=== PATIENT | male | born 1995 | race Caucasian/White ===

== ENCOUNTER 2017-05-09 16:37 | Emergency (ER) | payer OTHER ==
[2017-05-09 18:00] LABS: APPEARANCE,URINE CLEAR; BILIRUBIN,URINE NEGATIVE (NEGATIVE); GLUCOSE, URINE NEGATIVE (NEGATIVE); KETONES,URINE NEGATIVE (NEGATIVE); LEUKOCYTE ESTERASE,URINE NEGATIVE (NEGATIVE); NITRITE,URINE NEGATIVE (NEGATIVE); PROTEIN,URINE NEGATIVE (NEGATIVE); URINE SPECIFIC GRAVITY 1.003; UROBILINOGEN,URINE NEGATIVE mg/dL (<2.0)
[2017-05-09 18:03] LABS: ABSOLUTE LYMPHOCYTES (AUTO) 0.9 10^3/uL (0.5-4.7); ABSOLUTE MONOCYTES (AUTO) 0.3 10^3/uL (0.1-1.4); ABSOLUTE NEUT (AUTO) 7.3 10^3/uL (1.7-8.2); BASOPHILS % (AUTO) 0.4 % (0-2); EOSINOPHILS % (AUTO) 0.3 % (0-6); HEMATOCRIT 43.7 % (37.9-51.0); HEMOGLOBIN 14.7 g/dL (13.5-17.0); HGB HCT DIFFERENCE 0.4; LYMPHOCYTES % (AUTO) 10.5 % (13-45); MEAN CORPUSCULAR HEMOGLOBIN 26.3 pg (27.0-33.4); MEAN CORPUSCULAR HGB CONC 33.8 g/dL (32.0-36.0); MEAN CORPUSCULAR VOLUME 78 fl (80-97); MONOCYTES % (AUTO) 3.7 % (3-13); RED BLOOD COUNT 5.59 10^6/uL (4.35-5.55); RED CELL DISTRIBUTION WIDTH 13.9 % (11.5-14.0); SEGMENTED NEUTROPHILS % (AUTO) 85.1 % (42-78); WHITE BLOOD COUNT 8.5 10^3/uL (4.0-10.5)
[2017-05-09 18:20] LABS: ALANINE AMINOTRANSFERASE 27 U/L (21-72); ALBUMIN 5.3 g/dL (3.5-5.0); ALKALINE PHOSPHATASE 130 U/L (38-126); ANION GAP 17 (5-19); ASPARTATE AMINO TRANSFERASE 19 U/L (17-59); BILIRUBIN,DIRECT 0.4 mg/dL (0.0-0.4); BILIRUBIN,TOTAL 2.3 mg/dL (0.2-1.3); BLOOD UREA NITROGEN 9 mg/dL (7-20); CALCIUM 10.5 mg/dL (8.4-10.2); CARBON DIOXIDE 24 mmol/L (22-30); CHLORIDE 102 mmol/L (98-107); CREATININE RESULT 0.87 mg/dL (0.52-1.25); GLUCOSE 97 mg/dL (75-110); LIPASE 29.7 U/L (23-300); SODIUM 142.6 mmol/L (137-145); TOTAL PROTEIN 8.4 g/dL (6.3-8.2)
[2017-05-09 18:20] LABS: URINE BARBITURATES SCREEN NEGATIVE; URINE METHADONE SCREEN NEGATIVE; URINE OPIATES LOW NEGATIVE; URINE PHENCYCLIDINE SCREEN NEGATIVE
--- NOTE | 2017-05-09 19:39 | ER Document Report ---
ED General - General Chief Complaint: Abdominal Pain Stated Complaint: NAUSEA, VOMITING Time Seen by Provider: 05/09/17 17:19 Mode of Arrival: Ambulatory Information source: Patient Notes: Patient states that he had 2 episodes today of severe bilateral upper abdominal pain with nausea and vomiting. He also had episode of his heart racing in his hands sweaty and clammy. He states he has not had similar episodes in the past. No problems with urination or bowel movements. Nothing made the pain better or worse. It was severe. He states that currently here at the hospital he feels back to normal. There is no significant radiation of the pain. The pain was constant. TRAVEL OUTSIDE OF THE [place] IN LAST 30 DAYS: No - Related Data Allergies/Adverse Reactions: No Known Allergies Allergy (Verified 05/09/17 16:49) Past Medical History - General Information source: Patient - Social History Smoking Status: Never Smoker Frequency of alcohol use: Occasional Drug Abuse: None Family History: Reviewed & Not Pertinent Patient has suicidal ideation: No Patient has homicidal ideation: No Renal/ Medical History: Denies: Hx Peritoneal Dialysis Past Surgical History: Reports: Hx Appendectomy - Immunizations Immunizations up to date: No Hx Diphtheria, Pertussis, Tetanus Vaccination: No Review of Systems - Review of Systems Constitutional: denies: Chills, Fever Cardiovascular: Palpitations, Dizziness. denies: Syncope Respiratory: denies: Cough, Short of breath Gastrointestinal: Abdominal pain, Nausea -: Yes All other systems reviewed and negative Physical Exam - Vital signs Vitals: Temp Pulse Resp BP Pulse Ox 97.5 F 70 20 152/95 H 100 05/09/17 16:49 05/09/17 16:49 05/09/17 16:49 05/09/17 16:49 05/09/17 16:49 Interpretation: Hypertensive - General General appearance: Appears well, Alert - HEENT Head: Normocephalic, Atraumatic Eyes: Normal Pupils: PERRL - Respiratory Respiratory status: No respiratory distress Chest status: Nontender Breath sounds: Normal Chest palpation: Normal - Cardiovascular Rhythm: Regular Heart sounds: Normal auscultation Murmur: No - Abdominal Inspection: Normal Distension: No distension Bowel sounds: Normal Tenderness: Nontender Organomegaly: No organomegaly - Back Back: Normal, Nontender - Extremities General upper extremity: Normal inspection, Nontender, Normal color, Normal ROM , Normal temperature General lower extremity: Normal inspection, Nontender, Normal color, Normal ROM , Normal temperature, Normal weight bearing. No: Talya's sign - Neurological Neuro grossly intact: Yes Cognition: Normal Orientation: AAOx4 Ant Coma Scale Eye Opening: Spontaneous Ant Coma Scale Verbal: Oriented [place] Coma Scale Motor: Obeys Commands [place] Coma Scale Total: 15 Speech: Normal Motor strength normal: LUE, RUE, LLE, RLE Sensory: Normal - Psychological Associated symptoms: Normal affect, Normal mood - Skin Skin Temperature: Warm Skin Moisture: Dry Skin Color: Normal Course - Vital Signs Vital signs: Temp Pulse Resp BP Pulse Ox 97.5 F 70 20 152/95 H 100 05/09/17 16:49 05/09/17 16:49 05/09/17 16:49 05/09/17 16:49 05/09/17 16:49 - Laboratory Result Diagrams: 05/09/17 17:50 05/09/17 17:50 Laboratory results interpreted by me: 05/09/17 05/09/17 17:50 17:50 RBC 5.59 H MCV 78 L MCH 26.3 L Seg Neutrophils % 85.1 H Lymphocytes % 10.5 L Calcium 10.5 H Total Bilirubin 2.3 H Alkaline Phosphatase 130 H Total Protein 8.4 H Albumin 5.3 H Discharge - Discharge Clinical Impression: Abdominal pain Condition: Stable Disposition: HOME, SELF-CARE Instructions: Abdominal Pain ([facility]), Gallbladder Disease ([facility]) Additional Instructions: Your blood pressure is elevated. Please have this rechecked within the next week by your primary care physician. If you have any further problems with pain , fever, vomiting or any concerns please follow-up with the surgeon, Dr. Fontaine, or return to the emergency department for evaluation. Referrals: ARSEN FONTAINE MD [METAL REED TUNER] - Follow up as needed LOLLY ENCARNACION MD [ACTIVE STAFF] - Follow up as needed
[2017-05-09 19:54] VITALS: BP 138/87
--- NOTE | 2017-05-10 11:45 | EKG REPORT ---
SEVERITY:- NORMAL ECG - SINUS RHYTHM : Confirmed by: Edwardo Gloria 10-May-2017 11:45:00
== END 2017-05-09 19:55 | disposition home or self-care (01) ==
LOC: ER 16:37
DX: R10.11 Right upper quadrant pain (principal); R10.12 Left upper quadrant pain; R11.2 Nausea with vomiting, unspecified; R00.2 Palpitations; R42 Dizziness and giddiness
CPT/HCPCS: 36415; 80053; 80307; 81001; 83690; 85025; 93005; 93010; 99284

== ENCOUNTER 2017-05-15 21:11 | Emergency (ER) | payer SELFPAY ==
--- NOTE | 2017-05-15 22:48 | EKG REPORT ---
SEVERITY:- ABNORMAL ECG - SINUS ARRHYTHMIA, RATE 55-74 LEFT VENTRICULAR HYPERTROPHY : Confirmed by: Luis Nixon MD 15-May-2017 22:47:14
--- NOTE | 2017-05-15 22:50 | ER Document Report ---
ED General - General Mode of Arrival: Ambulatory Information source: Patient, Parent TRAVEL OUTSIDE OF THE [place] IN LAST 30 DAYS: No - HPI Onset: This evening Similar symptoms previously: Yes Recently seen / treated by doctor: Yes - General Chief Complaint: Passed Out Prior to Arrival Stated Complaint: POSSIBLE PANIC ATTACK Time Seen by Provider: 05/15/17 21:42 - HPI Notes: Patient is a 22-year-old male presented emergency department for a possible syncopal event. Patient was playing [place] at some friend's house and started to feel very nauseous. Patient went over to the side and had episodes of dry heaving 2. Patient then started hyperventilating according to the sister who was present and then the patient briefly passed out. Patient's mother believes the patient was having a panic attack. Patient's sister gave the patient 0.5 of lorazepam prior to arrival. Patient denies any history of anxiety. Patient did not vomit only dry heaved. Patient states that he also felt lightheaded during this event. Patient denies any diarrhea, shortness of breath, and chest pain. Patient does state that he is nauseous during the exam. Patient and mother both have concerns for the patient's gallbladder. Patient was evaluated for such recently in this emergency department. Patient is not having any abdominal pain, fever or other consistent symptoms for such. Patient has no known allergies. (RUBY ORELLANA) - Related Data Allergies/Adverse Reactions: No Known Allergies Allergy (Verified 05/09/17 16:49) Past Medical History - General Information source: Patient - Social History Smoking Status: Never Smoker Cigarette use (# per day): No Chew tobacco use (# tins/day): No Smoking Education Provided: No Frequency of alcohol use: Rare Drug Abuse: None Family History: None Patient has suicidal ideation: No Patient has homicidal ideation: No Past Surgical History: Reports: Hx Appendectomy - Immunizations Immunizations up to date: No Hx Diphtheria, Pertussis, Tetanus Vaccination: No Review of Systems - Review of Systems Constitutional: No symptoms reported EENT: No symptoms reported Cardiovascular: See HPI, Syncope, Lightheaded Respiratory: See HPI, Other - Hyperventilating Gastrointestinal: See HPI, Nausea, Other - Dry heaving Genitourinary: No symptoms reported Male Genitourinary: No symptoms reported Musculoskeletal: No symptoms reported Skin: No symptoms reported Hematologic/Lymphatic: No symptoms reported Neurological/Psychological: No symptoms reported -: Yes All other systems reviewed and negative Physical Exam - Vital signs Interpretation: Normal - Vital signs Vitals: Temp Pulse Resp BP Pulse Ox 97.6 F 81 18 147/90 H 99 05/15/17 21:25 05/15/17 21:25 05/15/17 21:25 05/15/17 21:25 05/15/17 21:25 - Notes Notes: GENERAL: Alert, interacts well. No acute distress. HEAD: Normocephalic, atraumatic. EYES: Pupils equal, round, and reactive to light. Extraocular movements intact. ENT: Oral mucosa moist, tongue midline. NECK: Full range of motion. Supple. Trachea midline. LUNGS: Clear to auscultation bilaterally, no wheezes, rales, or rhonchi. No respiratory distress. HEART: Regular rate and rhythm. No murmurs, gallops, or rubs. ABDOMEN: Soft, non-tender. Non-distended. Bowel sounds present in all 4 quadrants. EXTREMITIES: Moves all 4 extremities spontaneously. No edema. No cyanosis. NEUROLOGICAL: Alert and oriented x3. Normal speech. Cranial nerves II through XII grossly intact. PSYCH: Normal affect, normal mood. SKIN: Warm, dry, normal turgor. No rashes or lesions noted. (RUBY ORELLANA) Course - Re-evaluation Re-evalutation: 05/15/17 23:00 No risk factors for pulmonary embolism, symptoms consistent with a panic attack induced by dry heaving, discussed with patient that he could have a dysfunctional gallbladder however as he has no fever, no abdominal pain and no tenderness to palpation there is no indication for imaging at this time, patient was seen recently and had normal blood work, no elevation in LFTs. On physical examination there is no jaundice. Patient is completely back to baseline at this time. EKG is nonischemic. Patient will be discharged to home , recommended to follow a low-fat diet and follow-up as an outpatient for further gallbladder testing should he continue to have nausea when he eats greasy foods. (GURU MACHUCA) - Vital Signs Vital signs: Temp Pulse Resp BP Pulse Ox 98.0 F 86 17 143/84 H 98 05/15/17 23:05 05/15/17 23:05 05/15/17 23:05 05/15/17 23:05 05/15/17 23:05 - EKG Interpretation by Me Additional EKG results interpreted by me: 05/15/17 23:03 EKG shows sinus rhythm rate 95, normal axis, normal intervals, no ST segment elevations or depressions, no T-wave inversions per my interpretation. (GURU MACHUCA) Discharge - Discharge Clinical Impression: Anxiety attack, Nausea alone Syncope Qualifiers: Syncope type: unspecified Qualified Code(s): R55 - Syncope and collapse Hypertension Qualifiers: Hypertension type: essential hypertension Qualified Code(s): I10 - Essential ( primary) hypertension Condition: Stable Disposition: HOME, SELF-CARE Additional Instructions: Please follow a low-fat diet. Avoid greasy and fried food. Fat can also be found in dairy products. If every time you eat greasy or fatty food it causes vomiting please consider following up with surgery as an outpatient for further evaluation of your gallbladder. Should you develop severe pain in your abdomen particularly in the right upper quadrant, uncontrollable vomiting or fevers please return to the emergency department. If you start having panic attacks that are not triggered by dry heaving and nausea please consider following up with a physician or a psychologist as an outpatient. Return for chest pain or difficulty breathing that is not associated with your dry heaving. Forms: Elevated Blood Pressure Referrals: CHAPIN WARNER MD [ACTIVE STAFF] - Follow up as needed Scribe Attestation: 05/16/17 00:55 I personally performed the services described in the documentation, reviewed and edited the documentation which was dictated to the scribe in my presence, and it accurately records my words and actions. (GURU MACHUCA) Scribe Documentation - Scribe Written by Kiara:: Kiara Lucas, 05/15/2017 [id number] acting as scribe for :: Amanda
[2017-05-15 23:31] VITALS: BP 143/84
== END 2017-05-15 23:05 | disposition home or self-care (01) ==
LOC: ER 21:11
DX: R55 Syncope and collapse (principal); I10 Essential (primary) hypertension; R11.0 Nausea; R06.4 Hyperventilation; Z90.49 Acquired absence of other specified parts of digestive tract
CPT/HCPCS: 93005; 93010; 99284

== ENCOUNTER 2017-10-17 02:54 | Emergency (ER) | payer SELFPAY ==
[2017-10-17] MEDS ORDERED: ASPIRIN 81 MG TABLET, CHEWABLE PO ONE (03:56)
--- NOTE | 2017-10-17 04:00 | ER Document Report ---
ED Medical Screen (RME) - General Chief Complaint: Palpitations Stated Complaint: NUMBNESS/HEART PALPITATIONS/CLAMMY FEELING Time Seen by Provider: 10/17/17 03:56 Mode of Arrival: Ambulatory Information source: Patient, Parent Notes: 21-year-old male presents to ED for complaint of heart racing and pain with shortness of breath and diaphoresis around 9:00 until 2 AM. He states he was taken a shower brush his teeth get ready for bed and all of a sudden his heart felt like it was racing. He states he laid down and his heart felt like it was pounding and he was short of breath. He states he had some numbness at that time. States he laid there thinking that it would get better and when it did not get better by about 2:00 his mother brought him to the emergency room. He states he took some ibuprofen around 630 for headache and some Tylenol. He states now his heart is feeling much better his heart does not feel like it is racing states he still been a little diaphoretic off and on. States his doctor told him in August that he had high blood pressure and it was did not need to be monitored. He states he has lost his insurance and has not been able to follow-up with the doctor. His blood pressure was elevated and RME. Heart rate is now 81 O2 sats 100% and blood pressure is 137/94 I have greeted and performed a rapid initial assessment of this patient. A comprehensive ED assessment and evaluation of the patient, analysis of test results and completion of medical decision making process will be conducted by an additional ED providers. TRAVEL OUTSIDE OF THE [place] IN LAST 30 DAYS: No - Related Data Allergies/Adverse Reactions: No Known Allergies Allergy (Verified 05/09/17 16:49) Past Medical History Renal/ Medical History: Denies: Hx Peritoneal Dialysis Past Surgical History: Reports: Hx Appendectomy - Immunizations Immunizations up to date: No Hx Diphtheria, Pertussis, Tetanus Vaccination: No Physical Exam - Vital signs Vitals: Temp Pulse Resp BP Pulse Ox 97.6 F 69 16 138/91 H 99 10/17/17 03:05 10/17/17 03:05 10/17/17 03:05 10/17/17 03:05 10/17/17 03:05 Course - Vital Signs Vital signs: Temp Pulse Resp BP Pulse Ox 97.6 F 69 16 138/91 H 99 10/17/17 03:05 10/17/17 03:05 10/17/17 03:05 10/17/17 03:05 10/17/17 03:05
[2017-10-17 04:57] LABS: APPEARANCE,URINE CLEAR; BILIRUBIN,URINE NEGATIVE (NEGATIVE); COLOR,URINE YELLOW; GLUCOSE, URINE NEGATIVE (NEGATIVE); KETONES,URINE NEGATIVE (NEGATIVE); LEUKOCYTE ESTERASE,URINE NEGATIVE (NEGATIVE); NITRITE,URINE NEGATIVE (NEGATIVE); PROTEIN,URINE NEGATIVE (NEGATIVE); URINE SPECIFIC GRAVITY 1.029; UROBILINOGEN,URINE NEGATIVE mg/dL (<2.0)
[2017-10-17 04:59] LABS: ABSOLUTE EOSINOPHILS # (AUTO) 0.1 10^3/uL (0.0-0.6); ABSOLUTE LYMPHOCYTES (AUTO) 1.2 10^3/uL (0.5-4.7); ABSOLUTE MONOCYTES (AUTO) 0.4 10^3/uL (0.1-1.4); ABSOLUTE NEUT (AUTO) 4.6 10^3/uL (1.7-8.2); BASOPHILS % (AUTO) 0.6 % (0-2); EOSINOPHILS % (AUTO) 1.1 % (0-6); HEMATOCRIT 42.5 % (37.9-51.0); HEMOGLOBIN 14.2 g/dL (13.5-17.0); LYMPHOCYTES % (AUTO) 19.5 % (13-45); MEAN CORPUSCULAR HEMOGLOBIN 26.2 pg (27.0-33.4); MEAN CORPUSCULAR HGB CONC 33.4 g/dL (32.0-36.0); MEAN CORPUSCULAR VOLUME 78 fl (80-97); MONOCYTES % (AUTO) 6.8 % (3-13); PLATELET COUNT 152 10^3/uL (150-450); RED BLOOD COUNT 5.42 10^6/uL (4.35-5.55); RED CELL DISTRIBUTION WIDTH 14.2 % (11.5-14.0); TOTAL CELLS COUNTED % (AUTO) 100 %; WHITE BLOOD COUNT 6.3 10^3/uL (4.0-10.5)
[2017-10-17 05:10] LABS: URINE AMPHETAMINES SCREEN NEGATIVE; URINE BARBITURATES SCREEN NEGATIVE; URINE BENZODIAZEPINES SCREEN NEGATIVE; URINE COCAINE SCREEN NEGATIVE; URINE MARIJUANA (THC) SCREEN NEGATIVE; URINE METHADONE SCREEN NEGATIVE; URINE PHENCYCLIDINE SCREEN NEGATIVE
[2017-10-17 05:25] LABS: ALANINE AMINOTRANSFERASE 25 U/L (21-72); ALBUMIN 4.9 g/dL (3.5-5.0); ALKALINE PHOSPHATASE 93 U/L (38-126); ANION GAP 9 (5-19); ASPARTATE AMINO TRANSFERASE 16 U/L (17-59); BILIRUBIN,DIRECT 0.3 mg/dL (0.0-0.4); BILIRUBIN,TOTAL 1.3 mg/dL (0.2-1.3); BLOOD UREA NITROGEN 12 mg/dL (7-20); CALCIUM 10.3 mg/dL (8.4-10.2); CARBON DIOXIDE 29 mmol/L (22-30); CHLORIDE 105 mmol/L (98-107); CREATINE KINASE 70 U/L (55-170); GLUCOSE 96 mg/dL (75-110); POTASSIUM 3.8 mmol/L (3.6-5.0); SODIUM 143.1 mmol/L (137-145); TOTAL PROTEIN 7.5 g/dL (6.3-8.2)
--- NOTE | 2017-10-17 06:26 | ER Document Report ---
ED General - General Chief Complaint: Palpitations Stated Complaint: NUMBNESS/HEART PALPITATIONS/CLAMMY FEELING Time Seen by Provider: 10/17/17 03:56 Mode of Arrival: Ambulatory Information source: Patient Notes: 22-year-old male presents to ED for complaint of heart racing After performing a Medical Screening Examination, I estimate there is LOW risk for RUPTURED ESOPHAGUS, PNEUMOTHORAX, PULMONARY EMBOLISM, ACUTE CORONARY SYNDROME, OR THORACIC AORTIC DISSECTION, thus I consider the discharge disposition reasonable. I have reevaluated this patient multiple times and no significant life threatening changes are noted. The patient and I have discussed the diagnosis and risks, and we agree with discharging home with close follow-up. We also discussed returning to the Emergency Department immediately if new or worsening symptoms occur. We have discussed the symptoms which are most concerning (e.g., bloody sputum, worsening pain or shortness of breath) that necessitate immediate return., And shortness of breath with diaphoresis around 9 PM until 2 AM. He states he was taken shower brushes teeth get ready for bed when all of a sudden his heart felt like it was racing and pounding. He said became short of breath and diaphoretic. He states he had some numbness at the time. By the time I saw him in [facility] he was already feeling better. He states he took some ibuprofen around 630 for headache and that could have been why he was a little diaphoretic. He states his doctor told him in August that he had high blood pressure and it needed to be monitored but he never did go back because he did not have any insurance. TRAVEL OUTSIDE OF THE [place] IN LAST 30 DAYS: No - HPI Onset: This evening Onset/Duration: Gone Quality of pain: Achy Severity: Mild Pain Level: 2 Associated symptoms: Shortness of breath, Sweating, Other - Palpitations Exacerbated by: Denies Relieved by: Denies Similar symptoms previously: No Recently seen / treated by doctor: No - Related Data Allergies/Adverse Reactions: No Known Allergies Allergy (Verified 05/09/17 16:49) Past Medical History - General Information source: Patient, Parent - Social History Smoking Status: Never Smoker Chew tobacco use (# tins/day): No Frequency of alcohol use: None Drug Abuse: None Lives with: Family Family History: None. denies: Arthritis, CAD, COPD, CVA, DM, Hyperlipidemia, Hypertension, Malignancy, Thyroid Disfunction Patient has suicidal ideation: No Patient has homicidal ideation: No - Past Medical History Cardiac Medical History: Reports: None Pulmonary Medical History: Reports: None EENT Medical History: Reports: None Neurological Medical History: Reports: None Endocrine Medical History: Reports: None Renal/ Medical History: Reports: None Malignancy Medical History: Reports None GI Medical History: Reports: Hx Gastroesophageal Reflux Disease Musculoskeltal Medical History: Reports None Skin Medical History: Reports None Psychiatric Medical History: Reports: None Traumatic Medical History: Reports: None Infectious Medical History: Reports: None Past Surgical History: Reports: Hx Appendectomy - Immunizations Immunizations up to date: No Hx Diphtheria, Pertussis, Tetanus Vaccination: No Review of Systems - Review of Systems Constitutional: No symptoms reported EENT: No symptoms reported Cardiovascular: Palpitations, Other - States he was diaphoretic earlier Respiratory: Short of breath Gastrointestinal: No symptoms reported Genitourinary: No symptoms reported Male Genitourinary: No symptoms reported Musculoskeletal: No symptoms reported Skin: No symptoms reported Hematologic/Lymphatic: No symptoms reported Neurological/Psychological: Anxiety -: Yes All other systems reviewed and negative Physical Exam - Vital signs Vitals: Temp Pulse Resp BP Pulse Ox 97.6 F 69 16 138/91 H 99 10/17/17 03:05 10/17/17 03:05 10/17/17 03:05 10/17/17 03:05 10/17/17 03:05 Interpretation: Normal - General General appearance: Appears well, Alert - HEENT Head: Normocephalic, Atraumatic Eyes: Normal Pupils: PERRL - Respiratory Respiratory status: No respiratory distress. No: Respiratory distress Chest status: Nontender Breath sounds: Normal Chest palpation: Normal - Cardiovascular Rhythm: Regular Heart sounds: Normal auscultation Murmur: No - Abdominal Inspection: Normal Distension: No distension Bowel sounds: Normal Tenderness: Nontender Organomegaly: No organomegaly - Back Back: Normal, Nontender - Extremities General upper extremity: Normal inspection, Nontender, Normal color, Normal ROM , Normal temperature General lower extremity: Normal inspection, Nontender, Normal color, Normal ROM , Normal temperature, Normal weight bearing. No: Talya's sign - Neurological Neuro grossly intact: Yes Cognition: Normal Orientation: AAOx4 Ant Coma Scale Eye Opening: Spontaneous [place] Coma Scale Verbal: Oriented Atn Coma Scale Motor: Obeys Commands [place] Coma Scale Total: 15 Speech: Normal Motor strength normal: LUE, RUE, LLE, RLE Sensory: Normal - Psychological Associated symptoms: Normal affect, Normal mood - Skin Skin Temperature: Warm Skin Moisture: Dry Skin Color: Normal Course - Re-evaluation Re-evalutation: 10/17/17 06:25 Patient states he was feeling much better by the time I saw him in our any. His labs and chest x-ray were discussed with patient and written reports given to patient to follow-up with his primary doctor. No acute changes to his EKG. Patient states he is back to his normal will be discharged home to follow-up with his primary doctor. Patient encouraged to take his blood pressure several times a week and monitor this and take these to his primary doctor. He states right now he has no insurance or is not able to go to his doctor. Encouraged him that he needs to follow-up after this visit with a primary doctor. - Vital Signs Vital signs: Temp Pulse Resp BP Pulse Ox 97.6 F 69 20 122/84 100 10/17/17 03:05 10/17/17 03:05 10/17/17 06:01 10/17/17 06:01 10/17/17 06:01 - Laboratory Result Diagrams: 10/17/17 04:15 10/17/17 04:15 Laboratory results interpreted by me: 10/17/17 10/17/17 04:15 04:15 MCV 78 L MCH 26.2 L RDW 14.2 H Calcium 10.3 H AST 16 L - Diagnostic Test Radiology reviewed: Image reviewed - Dr Hsu consulted for x-ray reading. Stated nothing acute - EKG Interpretation by Me When compared to previous EKG there are: No significant change Discharge - Discharge Clinical Impression: Palpitation Condition: Stable Disposition: HOME, SELF-CARE Additional Instructions: Palpitations (Irregular/Rapid Heartrate) Irregular or rapid heartbeat is called "palpitation." To diagnose the cause of palpitation, we have to "catch it in the act" with an EKG. Sinus Tachycardia: This is a rapid (but NORMAL) rhythm that can be due to fever, pain, anxiety, lack of sleep, over-exertion, or drugs. Cold medications, caffeine, and diet pills are particularly likely to cause tachycardia. Usually , all that's required is rest, reassurance, and avoiding caffeine, alcohol, nicotine, and unnecessary medicines. Paroxysmal Atrial Tachycardia (PAT): This abnormally rapid heartbeat is caused by a "short circuit" in the electrical system of the heart. It is not dangerous, unless other heart disease is present. These attacks of PAT may occur occasionally for years. Medication is available for treatment. Paroxysmal Atrial Fibrillation or Atrial Flutter: This is irregular electrical activity in the upper heart chamber. These abnormal rhythms often occur with valve disease or in hearts damaged by hardening of the arteries. These rhythms usually require further testing, for example a cardiac echo. Premature Beats: Extra beats occur more commonly after caffeine, nicotine , alcohol, cold pills, diet pills. Emotional stress or fatigue also provoke them. Extra beats are only dangerous when heart disease is present. They usually need no treatment. If they're frequent, or if evidence of heart disease develops, medication can be given to suppress them. If we were unable to "catch" the palpitations on EKG, you should try to get an EKG immediately if the symptoms begin again. Contact the physician at once if you develop persistent lightheadedness, shortness of breath, chest pain , or swelling of the ankles. Your labs and x-rays were discussed with you. Your blood pressure was a little elevated when seen in triage but it is back down to normal now. Please monitor your blood pressure is was discussed with you and follow-up with your primary doctor. Things he can do to decrease your blood pressure or stay away from caffeine coffee cigarettes. Find ways to decrease stress in your life. Low- fat diet. FOLLOW-UP CARE: If you have been referred to a physician for follow-up care, call the physician s office for an appointment as you were instructed or within the next two days. If you experience worsening or a significant change in your symptoms, notify the physician immediately or return to the Emergency Department at any time for re-evaluation. Forms: Elevated Blood Pressure
[2017-10-17 06:30] VITALS: BP 122/84
--- NOTE | 2017-10-17 07:58 | RADIOLOGY REPORT (SQ) ---
EXAM DESCRIPTION: CHEST PA/LAT COMPLETED DATE/TIME: 10/17/2017 5:45 am REASON FOR STUDY: chest pain palpitations COMPARISON: None. EXAM PARAMETERS: NUMBER OF VIEWS: two views TECHNIQUE: Digital Frontal and Lateral radiographic views of the chest acquired. RADIATION DOSE: NA LIMITATIONS: none FINDINGS: LUNGS AND PLEURA: No infiltrate, masses or pneumothorax. No pleural effusion. MEDIASTINUM AND HILAR STRUCTURES: No masses or contour abnormalities. HEART AND VASCULAR STRUCTURES: Heart normal size. No evidence for failure. BONES: No acute findings. HARDWARE: None in the chest. OTHER: Chest leads in place. IMPRESSION: NO ACUTE DISEASE. TECHNICAL DOCUMENTATION: JOB ID: [id number] 2010 [employer]- All Rights Reserved
--- NOTE | 2017-10-17 08:32 | EKG REPORT ---
SEVERITY:- NORMAL ECG - SINUS RHYTHM : Confirmed by: Edwardo Gloria 17-Oct-2017 08:32:09
== END 2017-10-17 06:42 | disposition home or self-care (01) ==
LOC: ER 02:54
DX: R00.2 Palpitations (principal); R06.02 Shortness of breath; R61 Generalized hyperhidrosis; R20.0 Anesthesia of skin; F41.9 Anxiety disorder, unspecified
CPT/HCPCS: 36415; 71046; 80053; 80307; 81001; 82550; 82553; 85025; 93005; 93010; 99285